=== PATIENT | female | born 1950 | race Caucasian/White ===

== ENCOUNTER → 2016-11-27 | Outpatient (CLI) | payer OTHER ==
[~2016-11-27] MED LIST: ACET-732 PO; ASPI-557 PO; CALCIUM PO; CIPR-213 PO; CLINDAMYCIN PHOS; CYCL30DR BOTH EYES; DILT120C61 PO; ESTR42.58 VG; FISH1CAP2 PO; HYDR-3989 PO; LACT1CAP67 PO; LANS30CA44 PO; MAGN250T27 PO; NITR0.3T10 SL; SCOP1PAT TD; SOLI5TAB5 PO; [UNRECOGNIZED DRUG - CODE] PO; [UNRECOGNIZED DRUG - CODE] PO
--- NOTE | 2016-11-28 08:46 | DI ---
Indication: ITS.REASON: M50.20 BULGING CERVICAL DISC PROCEDURE: MRI CERVICAL SPINE W/O CONTRAS: Encounter: Initial Comparison: April 29, 2012 Technique: Multiplanar multisequence MR imaging of the cervical spine was performed without contrast. Findings: Alignment of the cervical spine is normal and unchanged. Vertebral body heights are maintained. No acute fracture. The cervical and upper thoracic spinal cord signal intensity is normal. Paraspinal soft tissues are within normal limits. Segmental analysis: C2-C3: Normal C3-C4: Normal C4-C5: Minimal central bulge without central canal or neural foraminal stenosis. Mild degenerative facet change on the left. C5-C6: No disk protrusion, central canal or neural foraminal stenosis. Mild left-sided degenerative facet disease. C6-C7: Disk height loss with a small disk osteophyte complex but no significant central canal stenosis. No significant neural foraminal narrowing. C7-T1: Normal Impression: Minimal degenerative changes for age with no significant central canal or neural foraminal stenosis. .
== END ==
LOC: IMA 17:48
PROVIDERS: ATTEND Family Medicine
DX: M47.812 Spondylosis without myelopathy or radiculopathy, cervical region (principal); M50.20 Other cervical disc displacement, unspecified cervical region